=== PATIENT | male | born 1965 | race Caucasian/White ===

== ENCOUNTER 2021-10-23 18:50 | Emergency (ER) | payer OTHER ==
[2021-10-23 20:02] LABS: BASOPHIL 0.4 % (0-2); EOSINOPHIL 0.4 % (0-5); HCT 45.6 % (42.0-52.0); HGB 15.9 g/dl (13.2-18.0); LYMPHOCYTE 22.6 % (15-48); MCH 32.6 pg (25.0-31.0); MCHC 34.9 g/dL (32.0-36.0); MCV 93.6 fL (78.0-100.0); MONOCYTE 9.2 % (0-12); MPV 9.7 fL (6.0-9.5); NEUTROPHIL 66.8 % (41-80); NRBC 0; PLT 258 K/uL (150-400); RBC 4.87 M/uL (4.70-6.00); RDW 13.1 % (11.5-14.0); WBC 10.4 K/uL (4.0-10.5)
[2021-10-23 20:22] LABS: BUN/CREAT RATIO (CALC) 13.6 RATIO; CREATININE 1.32 mg/dL (0.67-1.17); POTASSIUM 3.7 mmol/L (3.5-5.1)
[2021-10-23 20:44] LABS: CORONAVIRUS 2019 SARS-COV-2 NEGATIVE (NEGATIVE); INFLUENZA A NAA NEGATIVE (NEGATIVE)
[2021-10-23 20:46] LABS: MARIJUANA (THC) POSITIVE (NEGATIVE)
[2021-10-23 20:47] LABS: AMPHETAMINES NEGATIVE (NEGATIVE); BARBITURATES NEGATIVE (NEGATIVE); ECSTASY (MDMA) NEGATIVE (NEGATIVE); METHADONE NEGATIVE (NEGATIVE); OPIATES NEGATIVE (NEGATIVE); OXYCODONE NEGATIVE (NEGATIVE)
[2021-10-23] MEDS ORDERED: MEDROL 4MG DOSEP4 MG PO (23:17)
[2021-10-23] MEDS ORDERED: ZPAK PO (23:17)
[2021-10-23] MEDS ORDERED: ULTRAM50 MG PO (23:17)
== END 2021-10-23 23:38 | disposition home or self-care (01) ==
LOC: FER 18:50
PROVIDERS: Nurse Practitioner Family
DX: R07.89 Other chest pain (principal); I10 Essential (primary) hypertension; F17.210 Nicotine dependence, cigarettes, uncomplicated; Z20.822 Contact with and (suspected) exposure to COVID-19
CPT/HCPCS: 36415; 71045; 80048; 80305; 84484; 85025; 85379; 93005; U0002